=== PATIENT | female | born 1940 | race Caucasian/White ===

== ENCOUNTER 2023-07-23 14:38 | Emergency (ER) | payer OTHER, SELFPAY ==
[2023-07-23 14:40] VITALS: BP 168/98
--- NOTE | 2023-07-23 16:46 | ED.GENMED ---
History of Present Illness
General
Chief Complaint: Fall
Time Seen by Provider: 07/23/23 16:42
Travel History
Have you had any contact with someone who has COVID-19?: No
Do you have any symptoms of coronavirus? Fever > 100 degrees, chills, cough, shortness of breath, sore throat, loss of taste or smell, muscle aches, or headache?: No
History of Present Illness
History of Present Illness:
83-year-old female with history of hypertension and hyperlipidemia presents to the emergency department for evaluation of a minor head injury. She fell down approximately 4-5 stairs and struck the left occiput on the ground. Denies any loss of
conscious. This injury occurred approximately 2 to 3 hours prior to arrival. Does not take any anticoagulants but does take 81 mg of aspirin. Denies any vomiting or severe headache. No vision changes, denies neck pain or extremity paresthesias
Past History
Past History
ED Past Medical History: HTN, Hypercholesterolemia, Hypothyroidism and Other (Hiatal hernia, Sjogren's syndrome)
ED Past Surgical History: Appendectomy, Cholecystectomy, Gynecological (Left lumpectomy, ) and Other (Hernia surgery, recent dilatation of the lower esophagus, Hiatel hernia surgery)
Social History
Tobacco: Non-smoker
Alcohol: None
Drug: None
Personal: Single
Living: alone
Employment: Retired
Family History
Family History: Other (Noncontributory)
Review of Systems
Review of Systems
Allergies reviewed?: Yes
All Other Systems: ROS reviewed and negative except as documented in HPI and ROS
Phy Exam
Physical Exam
Physical Exam:
GEN: Well appearing, NAD, WDWN
HEENT: Small hematoma to the left parietal scalp, no crepitus or open wounds, oral mucosa moist, no scleral icterus, no nasal congestion
Cardiac: Regular rate
Lung: No respiratory distress, no tachypnea
MSK: No gross deformity or injuries
Skin: Good color, no pallor or jaundice, no rashes
Neuro: AO x3; CN II-XII grossly intact. BUE strength 5/5 in all mckeon, sensation intact and symmetric. BLE strength 5/5 in all mckeon, sensation intact and symmetric
Psych: Calm, cooperative
Course
Orders/Labs/Results
Orders:
Orders
07/23/23 14:42
CT Head W/o Iv Contrast Urgent
Comment:
Reason For Exam: head strike
Vital Signs
Initial and Last Documented VS:
Initial Vital Signs
Temp Pulse Resp BP Pulse Ox
97.5 F 80 18 168/98 99
07/23/23 14:40 07/23/23 14:40 07/23/23 14:40 07/23/23 14:40 07/23/23 14:40
Last Documented Vital Signs
Temp Pulse Resp BP Pulse Ox
97.5 F 80 18 168/98 99
07/23/23 14:40 07/23/23 14:40 07/23/23 14:40 07/23/23 14:40 07/23/23 14:40
MDM/Problems Addressed
MDM/Problems Addressed:
Due to patient's age and use of aspirin a CT of the head was obtained showing no evidence for skull fracture or intracranial hemorrhage. She is neurologically intact and does not require extended observation
*Critical Care Note
Total Time (30-74mins, 75-104mins- exclusive of procedures): Not Applicable
ED Attending Note
-
Portions of this chart may have been created with voice recognition software.� Occasional wrong word or��sound alike� substitutions may have occurred due to the inherent limitations of voice recognition software.
Discharge Plan
Departure
Patient Disposition: Home (Routine Discharge)
Date of Disposition: 07/23/23
Time of Disposition: 18:05
Patient with high blood pressure during this ER visit?: No
Discharge Problem:
Closed head injury
Instructions: Head Injury in Adults (DC)
Prescriptions:
No Action
pilocarpine HCl 5 MG tablet
5 mg PO BID
sertraline 100 MG tablet
100 mg PO HS
amitriptyline 50 MG tablet
50 mg PO HS
levothyroxine 25 MCG tablet
37.5 mcg PO DAILY@0300
simvastatin 20 MG tablet
40 mg PO DAILY
zolpidem 10 MG tablet
10 mg PO [id number] PRN (Reason: sleep)
albuterol sulfate 1 PUFF HFA aerosol inhaler
1 puff inhalation R Q4HPRN PRN (Reason: sob)
diazepam 5 MG tablet
10 mg PO HSPRN PRN (Reason: sleep)
tramadol 100 MG tablet extended release 24 hr
100 mg PO DAILY
Patient Comments:
PATIENT CERTIFIED PERSONAL CHEF ON 12/29/21 #30
metronidazole 500 mg tablet
500 mg PO [id number]
Patient Comments:
01/07/22--PATIENT CERTIFIED PERSONAL CHEF ON 12/11/21 #20 BUT PATIENT NEVER START, SHE SAID SHE MIS UNDERSTOOD THE MD AND THOUGHT TO TAKT THIS ONLY WHEN THE DISCOMFORT STARTED
ciprofloxacin HCl 500 mg tablet
500 mg PO [id number]
Patient Comments:
01/07/22--PATIENT CERTIFIED PERSONAL CHEF ON 12/11/21 #20 BUT PATIENT NEVER START, SHE SAID SHE MIS UNDERSTOOD THE MD AND THOUGHT TO TAKT THIS ONLY WHEN THE DISCOMFORT STARTED
lansoprazole 30 mg Capsule,Delayed Release(Dr/Ec)
30 mg PO DAILY
fluticasone propionate [Flovent HFA] 220 mcg/actuation HFA aerosol inhaler
1 puff INHALATION R BIDPRN PRN (Reason: SOB)
losartan 100 mg Tablet
100 mg PO DAILY
levomefolate calcium [L-Methylfolate] 15 mg tablet
15 mg PO DAILY
Referrals:
Himanshu Del Toro MD [Family Provider] -
Interventions
Interventions:
*Risk Screen - Suicide Last Done: 07/23/23 14:40
*General Assessment Last Done: 07/23/23 14:40
*Neglect/Abuse Screening Last Done: 07/23/23 14:40
ED- Fall Risk Assessment Last Done: 07/23/23 18:06
*ED COVID-19 Vaccine History Last Done: 07/23/23 14:40
*Nursing Disposition Last Done: 07/23/23 18:06
ED-Musculoskeletal Assessment Last Done: 07/23/23 18:06
ED- Neurological Assessment Last Done: 07/23/23 18:06
ED-Skin Assessment Last Done: 07/23/23 18:06
Discharge Date and Time
Discharge Date/Time: 07/23/23 18:16
Print Language: KENYAN
== END 2023-07-23 18:16 | disposition home or self-care (01) ==
LOC: EMR 14:38
PROVIDERS: EMERGENCY PHYSICIAN Emergency Medicine; FAMILY PHYSICIAN Internal Medicine
DX: S09.90XA Unspecified injury of head, initial encounter (principal); W10.9XXA Fall (on) (from) unspecified stairs and steps, initial encounter; Z79.82 Long term (current) use of aspirin
CPT/HCPCS: 99284; 70450

== ENCOUNTER 2023-11-23 13:30 | Emergency (ER) | payer OTHER, SELFPAY ==
[2023-11-23 13:33] VITALS: BP 152/88
[2023-11-23 13:52] LABS: % Basophils 1.1 % (0-2); % Eosinophils 4.3 % (0-6); % Immature Granulocytes 0.3 % (0-0.5); % Lymphocytes 13.9 % (20.5-51.1); % Monocytes 8.8 % (1.7-9.3); % Neutrophils 71.6 % (42.2-75.2); Absolute Basophils 0.1 10^3/uL (0-0.2); Absolute Eosinophils 0.3 10^3/uL (0-0.7); Absolute Lymphocytes 0.9 10^3/uL (1.2-3.4); Absolute Monocytes 0.6 10^3/uL (0.1-0.6); Absolute Neutrophils 4.5 10^3/uL (1.4-6.5); Hematocrit 41.7 % (37.0-47.0); Hemoglobin 14.5 g/dL (12.0-16.0); Mean Corp Hgb Conc. 34.8 g/dL (33.0-37.0); Mean Corpuscular Hgb 30.3 pg (27.0-31.0); Mean Corpuscular Volume 87.2 fL (81.0-99.0); Mean Platelet Volume 8.8 fL (7.4-10.4); Nucleated Red Blood Cells % 0 %; Platelet Count 304 10^3/uL (130-400); Red Blood Cell Count 4.78 10^6/uL (4.20-5.40); Red Cell Dist. Width 13.5 % (11.5-14.5); White Blood Cell Count 6.3 10^3/uL (4.8-10.8)
[2023-11-23 14:07] LABS: ALT (SGPT) 22 U/L (0-35); AST (SGOT) 28 U/L (14-36); Albumin 4.4 g/dl (3.5-5.0); Alkaline Phosphatase 139 U/L (38-126); Blood Urea Nitrogen 22 mg/dl (7-17); Calcium 9.7 mg/dl (8.4-10.2); Carbon Dioxide 28 mmol/L (22-30); Chloride 90 mmol/L (98-107); Glucose 107 mg/dl (70-99); Lipase 105 U/L (23-300); Potassium 4.4 mmol/L (3.5-5.1); Sodium 132 mmol/L (135-145); Total Bilirubin 0.5 mg/dl (0.2-1.3); eGFR > 60.00
[2023-11-23 14:34] LABS: Troponin I < 0.012 ng/ml
[2023-11-23 15:38] VITALS: BP 140/91
[2023-11-23 17:26] VITALS: BMI 29.2
[2023-11-23 18:00] VITALS: BP 152/87
--- NOTE | 2023-11-23 19:03 | ED.GENMED ---
History of Present Illness
General
Chief Complaint: Abdominal Symptoms
Source: patient
Exam Limitations: none
Time Seen by Provider: 11/23/23 17:20
Nursing documentation reviewed up to this point in time: agreed with
History of Present Illness
History of Present Illness:
Patient is an 83-year-old female history of Sjogren's, hypertension hypercholesteremia presents to the ER for evaluation. Patient reports she has had burning to the skin over her anterior chest and feels a little burning inside this area for the
past 1 month. She denies any actual chest pain. She denies any injury. She denies any rash fever chills. When I went in to see patient she reports that she feels better and wants to go home.
She feels that she is very stressed over the election and also that this burning sensation to her skin is something to do with her autoimmune issue. She does have reflux and is on medications for reflux but does not feel that this is similar.
She denies any back pain chest pain injury.
Past History
Past History
ED Past Medical History: HTN, Hypercholesterolemia, Hypothyroidism and Other (Hiatal hernia, Sjogren's syndrome)
ED Past Surgical History: Appendectomy, Cholecystectomy, Gynecological (Left lumpectomy, ) and Other (Hernia surgery, recent dilatation of the lower esophagus, Hiatel hernia surgery)
Social History
Tobacco: Non-smoker
Alcohol: None
Drug: None
Personal: Single
Living: alone
Employment: Retired
Family History
Family History: Other (Noncontributory)
Review of Systems
Review of Systems
Allergies reviewed?: Yes
All Other Systems: ROS reviewed and negative except as documented in HPI and ROS
Constitutional: Reports no symptoms; Denies fever, fatigue or chills
EENT: Reports no symptoms
Respiratory: Reports no symptoms and other
Cardiac: Reports no symptoms
ABD/GI: Reports no symptoms
: Reports no symptoms
Musculoskeletal: Reports no symptoms
Skin: Reports other (Feels that her skin(skin to anterior chest) is burning)
Neurological: Reports no symptoms
Hematologic/Lymphatic: Reports no symptoms
Psychiatric: Reports no symptoms
Phy Exam
General Physical Exam
General Presentation: no apparent distress
General age: appears stated age
General Skin: warm and dry
General Habitus: normal
General Mental: alert
General Hydration: appears well hydrated
Cardiovascular Exam
Cardiovascular Exam: regular rate/rhythm, no murmur and normal peripheral pulses
Pulmonary Exam
Pulmonary Exam: lungs clear and no respiratory distress
Gastrointestinal Exam
Gastrointestinal Exam: non tender and soft
Neurological Exam
Neurological Exam: alert and oriented x3
Musculoskeletal Exam
Musculoskeletal Exam: full ROM
Skin Exam
Skin Exam: normal color, warm/dry and no rash
Psychiatric Exam
Psychiatric Exam: normal mood/affect
Course
Orders/Labs/Results
Orders:
Orders
11/23/23 13:35
ECG [Electrocardiogram (*1)] Urgent
Reason for Study: Abdominal Pain
11/23/23 13:36
EKG- Treatment ONCE
11/23/23 13:43
Complete Blood Count/With Diff Urgent
Comprehensive Metabolic Panel Urgent
Lipase Urgent
Troponin I Urgent
Abnormal Lab Results
11/23/23
13:43
Absolute Lymphs (auto) 0.9 L 10^3/uL
(1.2-3.4)
Lymphocytes % 13.9 L %
(20.5-51.1)
Sodium 132 L mmol/L
(135-145)
Chloride 90 L mmol/L
(98-107)
BUN 22 H mg/dl
(7-17)
Glucose 107 H mg/dl
(70-99)
Alkaline Phosphatase 139 H U/L
(38-126)
11/23/23 13:43
11/23/23 13:43
Vital Signs
Initial and Last Documented VS:
Initial Vital Signs
Temp Pulse Resp BP Pulse Ox
98.0 F 89 18 152/88 96
11/23/23 13:33 11/23/23 13:33 11/23/23 13:33 11/23/23 13:33 11/23/23 13:33
Last Documented Vital Signs
Temp Pulse Resp BP Pulse Ox
99.1 F 80 18 152/87 95
11/23/23 15:38 11/23/23 18:30 11/23/23 13:33 11/23/23 18:00 11/23/23 18:30
MDM/Problems Addressed
MDM/Problems Addressed:
Patient is a an 83-year-old female with Sjogren's and other medical history as documented presents to the ER for sensation of burning skin. She feels that her skin is burning to the anterior chest area. This has been for the past month. She
denies any actual chest pain abdominal pain shortness of breath. She is very anxious. She however on exam reports she despite felt anxious feels better and wants to go home. She believes this is related to her Sjogren's, rheumatological issue.
Issues have been occurring for the past month. Though she does take medicine for relief like she feels this is slightly different. She describes her skin feeling hot.
She denies any fever chills. On exam she is awake alert no acute distress no actual rash to skin . Patient is afebrile with a normal white count stable hemoglobin normal creatinine normal cardiac troponin and no acute concerning findings on EKG.
Will plan for discharge home though patient does not feel this is a reflux she will continue her reflux medication as previously prescribed and follow-up with family doctor. In addition she has appointment with her pie crimping machine operator Dr. Sánchez next
week.
Chronic conditions affecting care:
Sjogren's
*Pulse Oximetry
Patient hypoxic: no
*EKG
Interpreted by ED Provider?: Yes
Heart Rate: 87
Rate: normal
Rhythm: sinus
Ischemia: no ischemia
*Critical Care Note
Total Time (30-74mins, 75-104mins- exclusive of procedures): Not Applicable
ED Attending Note
-
Portions of this chart may have been created with voice recognition software.� Occasional wrong word or��sound alike� substitutions may have occurred due to the inherent limitations of voice recognition software.
Discharge Plan
Departure
Patient Disposition: Home (Routine Discharge)
Date of Disposition: 11/23/23
Time of Disposition: 19:21
Patient with high blood pressure during this ER visit?: Yes
Covid-19: Not Applicable
Discharge Problem:
burning sensation
Instructions: BLOOD PRESSURE
Prescriptions:
No Action
pilocarpine HCl 5 MG tablet
5 mg PO BID
sertraline 100 MG tablet
100 mg PO HS
amitriptyline 50 MG tablet
50 mg PO HS
levothyroxine 25 MCG tablet
37.5 mcg PO DAILY@0300
simvastatin 20 MG tablet
40 mg PO DAILY
zolpidem 10 MG tablet
10 mg PO [id number] PRN (Reason: sleep)
albuterol sulfate 1 PUFF HFA aerosol inhaler
1 puff inhalation R Q4HPRN PRN (Reason: sob)
diazepam 5 MG tablet
10 mg PO HSPRN PRN (Reason: sleep)
tramadol 100 MG tablet extended release 24 hr
100 mg PO DAILY
Patient Comments:
PATIENT CURTAIN DRIER ON 12/29/21 #30
metronidazole 500 mg tablet
500 mg PO [id number]
Patient Comments:
01/07/22--PATIENT CURTAIN DRIER ON 12/11/21 #20 BUT PATIENT NEVER START, SHE SAID SHE MIS UNDERSTOOD THE MD AND THOUGHT TO TAKT THIS ONLY WHEN THE DISCOMFORT STARTED
ciprofloxacin HCl 500 mg tablet
500 mg PO [id number]
Patient Comments:
01/07/22--PATIENT CURTAIN DRIER ON 12/11/21 #20 BUT PATIENT NEVER START, SHE SAID SHE MIS UNDERSTOOD THE MD AND THOUGHT TO TAKT THIS ONLY WHEN THE DISCOMFORT STARTED
lansoprazole 30 mg Capsule,Delayed Release(Dr/Ec)
30 mg PO DAILY
fluticasone propionate [Flovent HFA] 220 mcg/actuation HFA aerosol inhaler
1 puff INHALATION R BIDPRN PRN (Reason: SOB)
losartan 100 mg Tablet
100 mg PO DAILY
levomefolate calcium [L-Methylfolate] 15 mg tablet
15 mg PO DAILY
Referrals:
Himanshu Del Toro MD [Family Provider] -
Activity Restrictions/Additional Instructions:
You were seen here today for evaluation of burning sensation to your skin of your chest. Your blood work was normal including your cardiac blood work. Continue to take your reflux medicine follow-up with your family doctor as well as your
pie crimping machine operator as scheduled return if any worsening of symptoms.
Interventions
Interventions:
*Risk Screen - Suicide Last Done: 11/23/23 13:33
*General Assessment Last Done: 11/23/23 13:33
*Neglect/Abuse Screening Last Done: 11/23/23 13:33
ED- Fall Risk Assessment Last Done: 11/23/23 17:26
*ED COVID-19 Vaccine History Last Done: 11/23/23 17:26
TX-Wipodt-Tcuidliatd Assessment Last Done: 11/23/23 17:26
Discharge Date and Time
Print Language: BULGARIAN
== END 2023-11-23 19:45 | disposition home or self-care (01) ==
LOC: EMR 13:30
PROVIDERS: Emergency Medicine; EMERGENCY PHYSICIAN Emergency Medicine; FAMILY PHYSICIAN Internal Medicine
DX: R20.8 Other disturbances of skin sensation (principal); I10 Essential (primary) hypertension; E78.00 Pure hypercholesterolemia, unspecified; M35.00 Sjogren syndrome, unspecified
CPT/HCPCS: 99284; 80053; 83690; 84484; 85025; 93005

== ENCOUNTER 2024-02-14 13:30 | Emergency (ER) | payer OTHER, SELFPAY ==
[2024-02-14] VITALS (7 sets, daily range): BP systolic 167–198; BP diastolic 91–109
[2024-02-14 14:07] LABS: % Basophils 1.1 % (0-2); % Eosinophils 3.4 % (0-6); % Immature Granulocytes 0.3 % (0-0.5); % Lymphocytes 13.4 % (20.5-51.1); % Neutrophils 72.8 % (42.2-75.2); Absolute Basophils 0.1 10^3/uL (0-0.2); Absolute Eosinophils 0.2 10^3/uL (0-0.7); Absolute Lymphocytes 0.9 10^3/uL (1.2-3.4); Absolute Monocytes 0.6 10^3/uL (0.1-0.6); Absolute Neutrophils 5.1 10^3/uL (1.4-6.5); Hematocrit 43.6 % (37.0-47.0); Hemoglobin 15.1 g/dL (12.0-16.0); Mean Corp Hgb Conc. 34.6 g/dL (33.0-37.0); Mean Corpuscular Hgb 30.6 pg (27.0-31.0); Mean Corpuscular Volume 88.3 fL (81.0-99.0); Mean Platelet Volume 8.8 fL (7.4-10.4); Nucleated Red Blood Cells % 0 %; Platelet Count 310 10^3/uL (130-400); Red Blood Cell Count 4.94 10^6/uL (4.20-5.40); Red Cell Dist. Width 12.6 % (11.5-14.5)
[2024-02-14 14:22] LABS: ALT (SGPT) 22 U/L (0-35); AST (SGOT) 28 U/L (14-36); Albumin 4.4 g/dl (3.5-5.0); Alkaline Phosphatase 128 U/L (38-126); Blood Urea Nitrogen 21 mg/dl (7-17); Calcium 9.9 mg/dl (8.4-10.2); Carbon Dioxide 29 mmol/L (22-30); Chloride 94 mmol/L (98-107); Glucose 106 mg/dl (70-99); Potassium 4.6 mmol/L (3.5-5.1); Sodium 133 mmol/L (135-145); Total Bilirubin 0.4 mg/dl (0.2-1.3); Total Protein 7.3 g/dl (6.3-8.2); eGFR > 60.00
[2024-02-14 17:06] LABS: Urine Albumin Negative (Neg - Trace); Urine Bilirubin Negative (Negative); Urine Character Clear (Clear); Urine Color Yellow; Urine Glucose Negative (Negative); Urine Ketone Negative (Negative); Urine Leukocyte Trace (Negative); Urine Nitrite Positive (Negative); Urine Occult Blood Negative (Negative); Urine Specific Gravity 1.015 (<1.030); Urine Urobilinogen Negative (Neg - 1+)
[2024-02-14 17:12] LABS: Urine Squamous Cell 0-2 /LPF (Few)
[2024-02-14 17:13] LABS: Urine Bacteria Many (Negative); Urine Red Blood Cell 0-2 /HPF (0-2)
[2024-02-14] MEDS: NSS 500 IV (20:05)
--- NOTE | 2024-02-14 21:43 | ED.GENMED ---
History of Present Illness
General
Chief Complaint: Weakness
Source: patient
Exam Limitations: none
Time Seen by Provider: 02/14/24 16:53
Nursing documentation reviewed up to this point in time: agreed with
History of Present Illness
History of Present Illness:
Patient to ED with complaint of fatigue, weakness. Symptoms started yesterday. Denies fever/chills, n/v/d. No recent illness. States she has had hyponatremia in the past and is concerned that she is low again. Brought to ED by son for eval.
Past History
Past History
ED Past Medical History: HTN, Hypercholesterolemia, Hypothyroidism and Other (Hiatal hernia, Sjogren's syndrome)
ED Past Surgical History: Appendectomy, Cholecystectomy, Gynecological (Left lumpectomy, ) and Other (Hernia surgery, recent dilatation of the lower esophagus, Hiatel hernia surgery)
Social History
Tobacco: Non-smoker
Alcohol: None
Drug: None
Personal: Single
Living: alone
Employment: Retired
Family History
Family History: Other (Noncontributory)
Review of Systems
Review of Systems
Allergies reviewed?: Yes
All Other Systems: ROS reviewed and negative except as documented in HPI and ROS
Constitutional: Reports fatigue
EENT: Reports no symptoms
Respiratory: Reports no symptoms
Cardiac: Reports no symptoms
ABD/GI: Reports no symptoms
: Reports no symptoms
Musculoskeletal: Reports no symptoms
Skin: Reports no symptoms
Neurological: Reports weakness
Psychiatric: Reports no symptoms
Phy Exam
General Physical Exam
General Presentation: well appearing and no apparent distress
General age: appears stated age
General Skin: warm and dry
General Habitus: normal
Cardiovascular Exam
Cardiovascular Exam: regular rate/rhythm and no edema
Pulmonary Exam
Pulmonary Exam: lungs clear and no respiratory distress
Gastrointestinal Exam
Gastrointestinal Exam: non tender and soft
Neurological Exam
Neurological Exam: alert, oriented x3, CN II-XII intact, no motor deficits, no sensory deficits and normal gait
Musculoskeletal Exam
Musculoskeletal Exam: full ROM and neuro vasc intact
Skin Exam
Skin Exam: normal color, warm/dry and no rash
Psychiatric Exam
Psychiatric Exam: normal mood/affect
Course
Orders/Labs/Results
Orders:
Orders
02/14/24 13:59
Complete Blood Count/With Diff Urgent
Comprehensive Metabolic Panel Urgent
02/14/24 16:53
Electrocardiogram (*1) Urgent
Reason for Study: Fatigue / Weakness
EKG- Treatment ONCE
02/14/24 16:59
Urinalysis Reflex To Culture Urgent
Date Specimen was Collected: 02/14/24
Time Specimen was Collected: 16:58
Urine Microscopic Reflex Cult Urgent
Urine Culture Urgent
MUKUND Source: U
Specimen Description:
Date Specimen was Collected: 02/14/24
Time Specimen was Collected: 16:58
02/14/24 17:44
CT Head W/o Iv Contrast Urgent
Comment:
Reason For Exam: confusion
02/14/24 20:05
0.9% Sodium Chloride 500 ml [Nss] 500 ml IV BOLUS
Abnormal Lab Results
02/14/24 02/14/24
13:59 16:59
Absolute Lymphs (auto) 0.9 L 10^3/uL
(1.2-3.4)
Lymphocytes % 13.4 L %
(20.5-51.1)
Sodium 133 L mmol/L
(135-145)
Chloride 94 L mmol/L
(98-107)
BUN 21 H mg/dl
(7-17)
Glucose 106 H mg/dl
(70-99)
Alkaline Phosphatase 128 H U/L
(38-126)
Urine Nitrite (Reflex) Positive A
(Negative)
Leukocyte Esterase Rfl Trace A
(Negative)
Urine Bacteria (Reflex) Many A
(Negative)
02/14/24 13:59
02/14/24 13:59
Vital Signs
Initial and Last Documented VS:
Initial Vital Signs
Temp Pulse Resp BP Pulse Ox
98.9 F 73 16 167/91 100
02/14/24 13:48 02/14/24 13:48 02/14/24 13:48 02/14/24 13:48 02/14/24 13:48
Last Documented Vital Signs
Temp Pulse Resp BP Pulse Ox
98.9 F 67 18 186/94 97
02/14/24 13:48 02/14/24 20:51 02/14/24 20:51 02/14/24 20:49 02/14/24 19:56
*Radiology
Radiology exam reviewed: radiology read reviewed
*Pulse Oximetry
Patient hypoxic: no
*Critical Care Note
Total Time (30-74mins, 75-104mins- exclusive of procedures): Not Applicable
Update Note
Update Note:
Patient to ED with cmoplaint of weakness and fatigue. Feels like her Na is low. Labs reviewed with her. Na 133. All other results acceptable. Head CT neg for acute findings, NO findings to explain her syptoms.SHe remains awake and alert, in no
distress. Would like to return home tonight. She will be discharged home and agrees to follow up with PCP in AM. GIven instructions on s/s to return to ED and she is agreeable to plan
ED Attending Note
-
Portions of this chart may have been created with voice recognition software.� Occasional wrong word or��sound alike� substitutions may have occurred due to the inherent limitations of voice recognition software.
Discharge Plan
Departure
Patient Disposition: Home (Routine Discharge)
Date of Disposition: 02/14/24
Time of Disposition: 20:48
Patient with high blood pressure during this ER visit?: No
Condition: Good
Covid-19: Not Applicable
Discharge Problem:
Weakness
Instructions: Generalized Weakness (DC)
Prescriptions:
No Action
pilocarpine HCl 5 MG tablet
5 mg PO BID
sertraline 100 MG tablet
100 mg PO HS
amitriptyline 50 MG tablet
50 mg PO HS
levothyroxine 25 MCG tablet
37.5 mcg PO DAILY@0300
simvastatin 20 MG tablet
40 mg PO DAILY
zolpidem 10 MG tablet
10 mg PO [id number] PRN (Reason: sleep)
albuterol sulfate 1 PUFF HFA aerosol inhaler
1 puff inhalation R Q4HPRN PRN (Reason: sob)
diazepam 5 MG tablet
10 mg PO HSPRN PRN (Reason: sleep)
tramadol 100 MG tablet extended release 24 hr
100 mg PO DAILY
Patient Comments:
PATIENT PERSONNEL MANAGER ON 12/29/21 #30
metronidazole 500 mg tablet
500 mg PO [id number]
Patient Comments:
01/07/22--PATIENT PERSONNEL MANAGER ON 12/11/21 #20 BUT PATIENT NEVER START, SHE SAID SHE MIS UNDERSTOOD THE MD AND THOUGHT TO TAKT THIS ONLY WHEN THE DISCOMFORT STARTED
ciprofloxacin HCl 500 mg tablet
500 mg PO [id number]
Patient Comments:
01/07/22--PATIENT PERSONNEL MANAGER ON 12/11/21 #20 BUT PATIENT NEVER START, SHE SAID SHE MIS UNDERSTOOD THE MD AND THOUGHT TO TAKT THIS ONLY WHEN THE DISCOMFORT STARTED
lansoprazole 30 mg Capsule,Delayed Release(Dr/Ec)
30 mg PO DAILY
fluticasone propionate [Flovent HFA] 220 mcg/actuation HFA aerosol inhaler
1 puff INHALATION R BIDPRN PRN (Reason: SOB)
losartan 100 mg Tablet
100 mg PO DAILY
levomefolate calcium [L-Methylfolate] 15 mg tablet
15 mg PO DAILY
Referrals:
Himanshu Del Toro MD [Family Provider] - Tomorrow
Interventions
Interventions:
*Risk Screen - Suicide Last Done: 02/14/24 17:08
*General Assessment Last Done: 02/14/24 20:54
*Neglect/Abuse Screening Last Done: 02/14/24 17:08
ED- Fall Risk Assessment Last Done: 02/14/24 20:54
*ED COVID-19 Vaccine History Last Done: 02/14/24 13:50
*Nursing Disposition Last Done: 02/14/24 20:54
ED- Cardiac Assessment Last Done: 02/14/24 17:50
ED- Neurological Assessment Last Done: 02/14/24 17:50
ED- Pulmonary Assessment Last Done: 02/14/24 17:50
Discharge Date and Time
Discharge Date/Time: 02/14/24 21:01
Print Language: FAROESE
== END 2024-02-14 21:01 | disposition home or self-care (01) ==
LOC: EMR 13:30
PROVIDERS: Emergency Medicine; Nurse Practitioner; EMERGENCY PHYSICIAN Emergency Medicine; FAMILY PHYSICIAN Internal Medicine
DX: R53.1 Weakness (principal); R53.83 Other fatigue; I10 Essential (primary) hypertension; E78.00 Pure hypercholesterolemia, unspecified; E03.9 Hypothyroidism, unspecified; K44.9 Diaphragmatic hernia without obstruction or gangrene; M35.00 Sjogren syndrome, unspecified
CPT/HCPCS: 99284; 70450; 80053; 81003; 81015; 85025; 87077; 87086; 93005